=== PATIENT | female | born 1975 | race Caucasian/White ===

== ENCOUNTER 2018-09-15 23:04 | Emergency (ER) | payer OTHER ==
[~2018-09-15] VITALS: Ht 162.6 cm; Wt 81.7 kg
[2018-09-15 23:21] LABS: URINE BILIRUBIN NEGATIVE (Negative); URINE BLOOD 3+ (Negative); URINE CLARITY CLEAR; URINE COLOR YELLOW; URINE GLUCOSE-RANDOM NEGATIVE (Negative); URINE KETONES 1+ (Negative); URINE LEUKOCYTES-REFLEX NEGATIVE (Negative); URINE NITRITE-REFLEX NEGATIVE (Negative); URINE PROTEIN TRACE (Negative); URINE SPECIFIC GRAVITY >= 1.030 (1.005-1.030); URINE UROBILINOGEN 0.2 E.U./dl (0.2-1.0)
[2018-09-15 23:31] LABS: BACTERIA-REFLEX >30 Many /HPF (None Seen); CASTS None Seen /LPF (None Seen); CRYSTALS None Seen /LPF (None Seen); MUCUS 4-6 Moderate strn/LPF (None Seen); SQUAMOUS 0-3 Few /LPF (0-3); URINE WBC-REFLEX 6-15 Few /HPF (0-5)
[2018-09-15 23:42] LABS: NUCLEATED RBCS 0 /100WBC
[2018-09-15 23:44] LABS: HEMATOCRIT 38.8 % (37.0-47.0); MCH 28.6 pg (26.0-34.0); MCHC 33.5 g/dL (28.0-37.0); MCV 85.4 fL (80.0-100.0); PLATELET COUNT* 239 thou/uL (150-400); RBC 4.55 mil/uL (4.20-5.00); RDW-CV 13.9 % (10.5-14.5); WBC 15.6 thou/uL (4.0-11.0)
[2018-09-15 23:54] LABS: ALBUMIN 3.7 g/dL (3.4-5.0); CALCIUM 8.8 mg/dL (8.5-10.1); CREATININE 0.9 mg/dL (0.6-1.3); POTASSIUM 3.4 mmol/L (3.5-5.1); TOTAL BILIRUBIN 0.3 mg/dL (<0.1-1.0); TOTAL PROTEIN 6.8 g/dL (6.4-8.2)
[2018-09-16] MEDS ORDERED: BACTRIM DS TAB1 EACH PO (00:06)
[2018-09-16 00:17] LABS: ABSOLUTE MONOCYTES 1.4 thou/uL (0.0-1.2); ABSOLUTE NEUTROPHILS 12.2 thou/uL (1.6-8.1); ANISOCYTOSIS Occasional; PLATELET ESTIMATE DECREASED; TOXIC GRANULATION 1+
[2018-09-16 01:39] VITALS: BP 116/65
== END 2018-09-16 01:39 | disposition home or self-care (01) ==
LOC: M.ERS 23:04
PROVIDERS: Nurse Practitioner Family
DX: N39.0 Urinary tract infection, site not specified (principal); N94.6 Dysmenorrhea, unspecified